=== PATIENT | male | born 1995 | race Two or more races ===

== ENCOUNTER 2025-06-04 12:38 | Emergency (ER) | payer OTHER ==
[~2025-06-04] VITALS: Ht 172.7 cm; Wt 74.8 kg
[2025-06-04 12:51] VITALS: BP 123/69; TEMP 98.1; O2SAT 94
[2025-06-04] MEDS ORDERED: TDAP [DIPH/PERTUSSIS/TET] 0.5 ML VIAL IM ONE (13:31)
[2025-06-04] MEDS: TDAP [DIPH/PERTUSSIS/TET] 0.5 ML VIAL IM ONE (13:40)
== END 2025-06-04 13:49 | disposition home or self-care (01) ==
LOC: ER 12:55
DX: S61.411A Laceration without foreign body of right hand, initial encounter (principal); W26.0XXA Contact with knife, initial encounter; Y93.89 Activity, other specified; Y92.000 Kitchen of unspecified non-institutional (private) residence as the place of occurrence of the external cause; Y99.8 Other external cause status
CPT/HCPCS: 12002; 90471; 90715; 99283; A6403

== ENCOUNTER 2025-06-12 10:54 | Emergency (ER) | payer OTHER ==
[~2025-06-12] VITALS: Ht 170.2 cm; Wt 72.6 kg
[2025-06-12 11:14] VITALS: BP 123/68; TEMP 98.2
[2025-06-12 11:22] VITALS: O2SAT 98
== END 2025-06-12 11:23 | disposition home or self-care (01) ==
LOC: ER 10:58
DX: S61.412D Laceration without foreign body of left hand, subsequent encounter (principal); Z48.02 Encounter for removal of sutures; X58.XXXD Exposure to other specified factors, subsequent encounter